=== PATIENT | female | born 2000 | race Caucasian/White ===

== ENCOUNTER 2018-05-24 09:17 | Emergency (ER) | payer BC ==
[2018-05-24] MEDS ORDERED: fentaNYL 100 MCG/2 ML INJ IVP ONE (09:40)
--- NOTE | 2018-05-24 09:41 | EDPHY ---
H & P Time Seen by Provider: 05/24/18 09:25 HPI/ROS: CHIEF COMPLAINT: Right flank pain HISTORY OF PRESENT ILLNESS: Patient was seen at urgent care about 2 weeks ago was treated for urinary tract infection but had negative culture. Last night around 9:00 p.m. She developed right flank pain which is moderate to severe in nature, 7/10 pain it wraps around to the anterior abdomen associated with some cloudiness in her urine. She also has little bit of nausea. Pain was so bad that she was unable to get sleep stool around 6:00 a.m.. Denies or vaginal bleeding. No recent injury or trauma. No vomiting or diarrhea. REVIEW OF SYSTEMS: Eye: no change in vision ENT: no sore throat Cardiac: no chest pain or syncope Pulmonary: no cough or SOB Abdomen: HPI Musculoskeletal: HPI Skin: no rash Neuro: no headache Constitutional: no fever : HPI A comprehensive 10 point review of systems is otherwise negative aside from elements mentioned in the history of present illness. PAST MEDICAL HISTORY: Clavicle fracture with surgery to remove hardware on the right side 10 days ago. Social history: Student at [employer] General Appearance: Alert and conversant, cooperative. Eyes: No scleral icterus. ENT, Mouth: Normal mucous membranes. Respiratory: Normal respiratory effort, breath sounds equal, lungs are clear to auscultation. Cardiovascular: Regular rate and rhythm. Gastrointestinal: Abdomen is soft and non tender. Specifically no McBurney's point tenderness. Neurological: Alert, face symmetric, normal motor and sensory in extremities. Skin: Warm and dry, no rashes. Musculoskeletal: Minimal right flank tenderness. Psychiatric: Not agitated. Emergency Department course/MDM: Differential includes but not limited to ovarian cyst, appendicitis, renal colic , pyelonephritis, spinal problem, musculoskeletal. Fentanyl 50 mcg IV, ultrasound to evaluate for hydronephrosis or perinephric abscess, urinalysis and test. 1050: US shows no hydro or perinephric abscess, [place]. 1115: Likely pyelonephritis, patient says she was treated with oral Keflex 2 weeks ago for UTI will try a different antibiotic this time. Ceftriaxone 1 g IV and prescription for Bactrim. Culture sent. Antibiogram reviewed, quinolone and Bactrim listed as similar E coli resistance. Smoking Status: Never smoked Constitutional: Initial Vital Signs Temperature (C) 36.3 C 05/24/18 09:20 Heart Rate 84 05/24/18 09:20 Respiratory Rate 17 05/24/18 09:20 Blood Pressure 101/71 05/24/18 09:20 O2 Sat (%) 99 05/24/18 09:20 O2 Delivery Mode Room Air Allergies/Adverse Reactions: No Known Allergies Allergy (Unverified 05/24/18 09:19) Home Medications: Medication Instructions Recorded Oxycodone HCl 05/24/18 Sulfamethox/Tmp 800/160 mg 1 tab PO BID@1000,2200 #20 tab 05/24/18 [Bactrim Ds] Medical Decision Making - Diagnostics Imaging Results: Imaging Impressions Abdomen/Pelvis Ultrasound 05/24/18 09:41 Impression: 1. No hydronephrosis. 2. Normal renal ultrasound. Findings and recommendations discussed with Emergency Department physician, LENO ROBERT at 10:50 hour, 05/24/2018. Final report concurs with initial preliminary interpretation. Imaging: Discussed imaging studies w/ call box wirer Radiologist Differential Diagnosis: Differential considered for flank pain including but not limited to pyelonephritis, muscular, renal colic, spinal nerve compression, perinephric abscess - Data Points Laboratory Results: Laboratory Results 05/24/18 10:00 05/24/18 10:00 05/24/18 05/24/18 05/24/18 Unknown 10:00 10:00 WBC RBC Hgb Hct MCV MCH MCHC RDW Plt Count MPV Neut % (Auto) Lymph % (Auto) [place] % (Auto) Eos % (Auto) Baso % (Auto) Nucleat RBC Rel Count Absolute Neuts (auto) Absolute Lymphs (auto) Absolute Monos (auto) Absolute Eos (auto) Absolute Basos (auto) Absolute Nucleated RBC Immature Gran % Immature Gran # Sodium 142 mEq/L mEq/L (135-145) Potassium 3.8 mEq/L mEq/L (3.3-5.0) Chloride 106 mEq/L mEq/L (97-110) Carbon Dioxide 26 mEq/l mEq/l (22-31) Anion Gap 10 mEq/L mEq/L (6-14) BUN 11 mg/dL mg/dL (7-23) Creatinine 0.9 mg/dL mg/dL (0.6-1.0) Estimated GFR > 60 Glucose 90 mg/dL mg/dL (70-100) Calcium 10.1 mg/dL mg/dL (8.5-10.4) Beta HCG, Qual NEGATIVE Urine Color Urine Appearance Urine pH Ur Specific [place] Urine Protein Urine Ketones Urine Blood Urine Nitrate Urine Bilirubin Urine Urobilinogen Ur Leukocyte Esterase Urine RBC Urine WBC Ur Epithelial Cells Urine Bacteria Urine Glucose Urine Test Cancelled 05/24/18 05/24/18 05/24/18 10:00 09:20 09:20 WBC 10.32 10^3/uL H 10^3/uL (3.80-9.50) RBC 4.67 10^6/uL 10^6/uL (4.18-5.33) Hgb 15.2 g/dL g/dL (12.6-16.3) Hct 44.2 % % (38.0-47.0) MCV 94.6 fL fL (81.5-99.8) MCH 32.5 pg pg (27.9-34.1) MCHC 34.4 g/dL g/dL (32.4-36.7) RDW 12.5 % % (11.5-15.2) Plt Count 243 10^3/uL 10^3/uL (150-400) MPV 10.5 fL fL (8.7-11.7) Neut % (Auto) 69.4 % % (39.3-74.2) Lymph % (Auto) 18.9 % % (15.0-45.0) [place] % (Auto) 10.6 % % (4.5-13.0) Eos % (Auto) 0.4 % L % (0.6-7.6) Baso % (Auto) 0.5 % % (0.3-1.7) Nucleat RBC Rel Count 0.0 % % (0.0-0.2) Absolute Neuts (auto) 7.17 10^3/uL H 10^3/uL (1.70-6.50) Absolute Lymphs (auto) 1.95 10^3/uL 10^3/uL (1.00-3.00) Absolute Monos (auto) 1.09 10^3/uL H 10^3/uL (0.30-0.80) Absolute Eos (auto) 0.04 10^3/uL 10^3/uL (0.03-0.40) Absolute Basos (auto) 0.05 10^3/uL 10^3/uL (0.02-0.10) Absolute Nucleated RBC 0.00 10^3/uL 10^3/uL (0-0.01) Immature Gran % 0.2 % % (0.0-1.1) Immature Gran # 0.02 10^3/uL 10^3/uL (0.00-0.10) Sodium Potassium Chloride Carbon Dioxide Anion Gap BUN Creatinine Estimated GFR Glucose Calcium Beta HCG, Qual Urine Color YELLOW Urine Appearance MODERATELY TURBID Urine pH 7.0 (5.0-7.5) Ur Specific [place] 1.013 (1.002-1.030) Urine Protein 2+ H (NEGATIVE) Urine Ketones NEGATIVE (NEGATIVE) Urine Blood 2+ H (NEGATIVE) Urine Nitrate POSITIVE H (NEGATIVE) Urine Bilirubin NEGATIVE (NEGATIVE) Urine Urobilinogen NEGATIVE EU EU (0.2-1.0) Ur Leukocyte Esterase 3+ H (NEGATIVE) Urine RBC 50-182 /hpf H /hpf (0-3) Urine WBC 50-182 /hpf H /hpf (0-3) Ur Epithelial Cells TRACE /lpf /lpf (NONE-1+) Urine Bacteria 1+ /hpf H /hpf (NONE SEEN) Urine Glucose NEGATIVE (NEGATIVE) Urine Test NEGATIVE Medications Given: Discontinued Medications Fentanyl (Sublimaze) 50 mcg IVP EDNOW ONE Stop: 05/24/18 09:41 Last Admin: 05/24/18 10:04 Dose: 50 mcg Ceftriaxone Sodium/Dextrose (Rocephin 1 Gm (Premix)) 50 mls @ 100 mls/hr IV EDNOW ONE PRN Reason: Protocol Stop: 05/24/18 11:47 Last Admin: 05/24/18 11:22 Dose: 50 mls Departure - Departure Disposition: Home, Routine, Self-Care Clinical Impression: Acute pyelonephritis Condition: Good Instructions: Sulfamethoxazole/Trimethoprim (By mouth), Kidney Infection (ED) Referrals: [facility] [Clinic] - As per Instructions Prescriptions: Sulfamethox/Tmp 800/160 mg [Bactrim Ds] 1 tab PO BID@1000,2200 #20 tab
[2018-05-24 10:06] LABS: PLATELET COUNT 243 10^3/uL (150-400)
[2018-05-24 11:26] VITALS: BP 122/67
== END 2018-05-24 11:41 | disposition home or self-care (01) ==
DX: N10 Acute pyelonephritis (principal); Z87.440 Personal history of urinary (tract) infections
CPT/HCPCS: 96365; J0696; J3010